=== PATIENT | female | born 1965 | race Caucasian/White ===

== ENCOUNTER 2019-02-24 08:19 | Day surgery (SDC) | payer BC ==
[~2019-02-24] VITALS: Ht 160 cm; Wt 72.2 kg
[~2019-02-24 08:19] MED LIST: BEN50 PO
[2019-02-24] MEDS ORDERED: atorvastatin (09:07)
[2019-02-24] MEDS ORDERED: enalapril (09:07)
[2019-02-24] MEDS ORDERED: glipizide (09:07)
[2019-02-24] MEDS ORDERED: metformin (09:07)
[2019-02-24 09:46] VITALS: Ht 160 cm; Wt 72.2 kg
[2019-02-24 09:49] VITALS: BP 146/70; PULSE 71; RESP 16
[2019-02-24] MEDS ORDERED: MIDAZOLAM 1 MG/ML 2 ML INJ ONE ×2 (10:47)
[2019-02-24] MEDS ORDERED: FENTAnyl 50 MCG/ML VIAL ONE (10:47)
[2019-02-24 11:06] VITALS: BP 128/62; RESP 20
== END 2019-02-24 11:22 | disposition home or self-care (01) ==
LOC: GIL 08:19
PROVIDERS: ATTEND Internal Medicine Gastroenterology
DX: Z12.11 Encounter for screening for malignant neoplasm of colon (principal); D12.0 Benign neoplasm of cecum; K64.8 Other hemorrhoids; K57.30 Diverticulosis of large intestine without perforation or abscess without bleeding; E11.9 Type 2 diabetes mellitus without complications
CPT/HCPCS: 45380; 82962; 88305; J2250; J3010; Z7610